=== PATIENT | male | born 1990 | race African-American/Black ===

== ENCOUNTER 2017-11-29 12:25 | Emergency (ER) | payer SELFPAY ==
[~2017-11-29] VITALS: Ht 175.3 cm; Wt 98.0 kg
[2017-11-29 14:20] VITALS: BP 127/80
== END 2017-11-29 15:17 | disposition home or self-care (01) ==
LOC: ER 14:19
DX: J06.9 Acute upper respiratory infection, unspecified (principal); J02.9 Acute pharyngitis, unspecified; R03.0 Elevated blood-pressure reading, without diagnosis of hypertension
CPT/HCPCS: 99283

== ENCOUNTER 2018-03-19 15:58 | Emergency (ER) | payer MEDICAID ==
[~2018-03-19] VITALS: Ht 188 cm; Wt 100.0 kg
[2018-03-19 18:45] VITALS: BP 136/96
== END 2018-03-19 18:47 | disposition home or self-care (01) ==
LOC: ER 17:42
DX: J01.90 Acute sinusitis, unspecified (principal); R03.0 Elevated blood-pressure reading, without diagnosis of hypertension; F12.10 Cannabis abuse, uncomplicated
CPT/HCPCS: 99283

== ENCOUNTER 2019-01-21 13:43 | Emergency (ER) | payer MEDICAID ==
[~2019-01-21] VITALS: Ht 188 cm; Wt 102.0 kg
[2019-01-21 13:56] VITALS: BP 150/92
== END 2019-01-21 16:10 | disposition home or self-care (01) ==
LOC: ER 14:39
DX: J06.9 Acute upper respiratory infection, unspecified (principal); F12.10 Cannabis abuse, uncomplicated
CPT/HCPCS: 99283

== ENCOUNTER 2019-04-07 09:51 | Emergency (ER) | payer MEDICAID ==
[~2019-04-07] VITALS: Ht 188 cm; Wt 100.0 kg
[2019-04-07 11:37] VITALS: BP 146/85
== END 2019-04-07 11:38 | disposition home or self-care (01) ==
LOC: ER 09:53
DX: J06.9 Acute upper respiratory infection, unspecified (principal)
CPT/HCPCS: 99283

== ENCOUNTER 2020-05-28 09:49 | Emergency (ER) | payer MEDICAID ==
[~2020-05-28] VITALS: Ht 188 cm; Wt 109.0 kg
[2020-05-28 09:52] VITALS: BP 163/107
[2020-05-28] MEDS ORDERED: IBUPROFEN 600MG TABLET PO ONE (10:45)
[2020-05-28] MEDS ORDERED: BACITRACIN ZINC OINT UDPKT TOP ONE (11:30)
== END 2020-05-28 11:46 | disposition home or self-care (01) ==
LOC: ER 10:01
DX: S41.111A Laceration without foreign body of right upper arm, initial encounter (principal); M79.601 Pain in right arm; W25.XXXA Contact with sharp glass, initial encounter; Y93.9 Activity, unspecified; Y92.9 Unspecified place or not applicable
CPT/HCPCS: 73080; 73090; 99284

== ENCOUNTER 2020-11-19 07:03 | Emergency (ER) | payer MEDICAID ==
[~2020-11-19] VITALS: Ht 188 cm; Wt 115.0 kg
[2020-11-19 08:31] LABS: CHLORIDE 100 mEq/L (98-107)
[2020-11-19 08:33] LABS: BASOPHILS % 0.5 % (0.0-2.0); HEMOGLOBIN. 10.7 g/dL (14.0-18.0); LYMPHOCYTES % 58.4 % (20.0-50.0); MEAN CORPUSCULAR HEMOGLOBIN 28.2 pg (28.0-32.0); MEAN CORPUSCULAR VOLUME 84.2 fL (80.0-94.0); MONOCYTES % 6.6 % (2.0-8.0); NEUTROPHILS % 34.5 % (40.0-76.0); PLATELET 141 x1000/uL (130-400); RED CELL DISTRIBUTION WIDTH 13.1 % (11.6-14.6)
[2020-11-19] MEDS ORDERED: TOPUD PO (09:44)
[2020-11-19 10:40] VITALS: BP 119/81
== END 2020-11-19 11:05 | disposition home or self-care (01) ==
LOC: ER 07:03
DX: Z20.822 Contact with and (suspected) exposure to COVID-19 (principal); R06.02 Shortness of breath
CPT/HCPCS: 36415; 71045; 80053; 82728; 83605; 84484; 85025; 85610; 87040; 93005; 99285; C9803; J7040; U0003; Z7610; A4315